=== PATIENT | male | born 1990 | race Caucasian/White ===

== ENCOUNTER 2023-12-26 18:10 | Emergency (ER) | payer OTHER, SELFPAY ==
[2023-12-26 18:13] VITALS: BP 160/90; PULSE 95; RESP 16; TEMP 37.1; O2SAT 97; BMI 30.1
--- NOTE | 2023-12-26 18:24 | ED_ITS ---
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 Also he has had a white patch in his renner he is concerned about it appears to be just simply well whitish renner patch and it does not appear to be in any fungal infection or other underlying skin issue thirdly he has had trouble with some right upper abdominal discomfort intermittently over the last few months. He has not lost weight. He has not had any diarrhea or inability to eat. Does not seem to initially be worse when he eats but occasionally when he stands for prolonged periods or sits a certain way it will bother him. He has had no fever chills or weight loss as mention. No bowel or bladder changes or urinary changes. Related Data Previous Rx's Medication Instructions Recorded cephalexin 500 mg capsule 500 mg PO TID #21 caps 12/26/23 Allergies Allergy/AdvReac Type Severity Reaction Status Date / Time No Known Drug Allergies Allergy Verified 12/26/23 18:16 Review of Systems Status of ROS: Reports: 6 or more systems reviewed and unremarkable except as noted in History and below PFSH [facility] Social History Smoking Status: Never smoker Do you use any of these nicotine containing products: None How often do you have a drink containing alcohol: never How often do you have six or more drinks on one occasion: Never AUDIT-C Alcohol total score: 0 Non-prescribed substance use: denies use service: No Exam Narrative: Exam Narrative: Objective his temperature is normal, is blood pressure is slightly elevated 160/90 O2 sat excellent at 97% Alert orient x3 HEENT is unremarkable no scleral icterus mouth clear neck is supple Pulses regular Abdomen is benign soft no palpable rebound or peritonitis no palpable masses he does describe it is in his epigastrium and right upper quadrant where the pain has occurred. No back pain Lower extremities unremarkable, neurologic nonfocal Const: Vital Signs, click to edit/add: Vital Signs - 24 hr 12/26/23 18:13 Temperature 98.7 F Pulse Rate [Pulse Oximeter] 95 Respiratory Rate 16 Blood Pressure [Ri ght Upper Arm] 160/90 H Pulse Oximetry 97 Oxygen Delivery Me thod Room Air Course Vital Signs Vital signs: Initial Vital Signs Temperature 98.7 F 12/26/23 18:13 Temperature Source Temporal Artery Scan 12/26/23 18:13 Pulse Rate 95 12/26/23 18:13 Respiratory Rate 16 12/26/23 18:13 Blood Pressure 160/90 H 12/26/23 18:13 Blood Pressure Mean 113 H 12/26/23 18:13 Blood Pressure Position Sitting 12/26/23 18:13 Pulse Oximetry 97 12/26/23 18:13 Oxygen Delivery Method Room Air 12/26/23 18:13 Vital Signs Temperature 98.7 F 12/26/23 18:13 Pulse Rate 95 12/26/23 18:13 Respiratory Rate 16 12/26/23 18:13 Blood Pressure 160/90 H 12/26/23 18:13 Pulse Oximetry 97 12/26/23 18:13 Oxygen Delivery Method Room Air 12/26/23 18:13 Temperature 98.7 F 12/26/23 18:13 Pulse Rate 95 12/26/23 18:13 Respiratory Rate 16 12/26/23 18:13 Blood Pressure 160/90 H 12/26/23 18:13 Pulse Oximetry 97 12/26/23 18:13 Oxygen Delivery Method Room Air 12/26/23 18:13 Medications Administered Medications: Discontinued Medications Generic Name Dose Route Start Last Admin Trade Name Freq PRN Reason Stop Dose Admin Cephalexin HCl 500 mg 12/26/23 18:22 12/26/23 18:30 Cephalexin 500 Mg Capsule PO 12/26/23 18:23 500 mg ONCE ONE Administration Medical Decision Making MDM Narrative Medical decision making narrative: In 33-year-old male with a evidence of mild tooth infection on examination he has some mild lower gum irritation and some tooth decay on the lower gumline tooth on the right there is some minimal redness around the base that could be mild infection he will be started on Keflex 500 q.i.d. x7 days. Secondly he has a whitish patches renner that I think is just simply a graying of his renner I do not think there is any underlying cellulitic change I do not see any other underlying fungal infection. Thirdly the patient has some intermittent right- sided abdominal pain epigastric pain certainly could be mild gastritis could be cholelithiasis or cholecystitis. I think at this time would be corcoran check some lab studies if these are reassuring will set him up to see primary care for reassessment and make sure this is improving. I think also a trial of some H2 tyesha would be appropriate for acid suppression see that would help him. Will review labs as they return. Addendum 7:39 p.m.: The patient's lab studies look relatively reassuring, specifically CRP is less than 0.5 his ER profile is unremarkable, his AST and ALT are minimally elevated, his amylase is normal. The patient will be given antibiotic Keflex for his mouth infection, I think he can follow up with primary care, will given the number for a clinic appointment at our [facility]. And he should follow up to make sure that his symptoms are getting better. Because the location of the discomfort is certainly could be a gastritis or ref lux type symptom and I would have him take Zantac daily for the next couple of weeks. And he can follow up with primary care in 5-7 days and see how he is improving and return to ED sooner problems or concerns or worsening. May need further imaging such as ultrasound of the right upper quadrant if he does not get better her symptoms were continue despite H2 tyesha. Lab Data Labs: Lab Results 12/26/23 Range/Units 18:37 Sodium 138 (135-149) mmol/L Potassium 4.0 (3.6-5.1) mmol/L Chloride 105 (96-114) mmol/L Carbon Dioxide 28 (20-32) mmol/L Anion Gap 5 L (7-15) mEq/L BUN 16 (5-24) mg/dL Creatinine 1.1 (0.5-1.5) mg/dL Estimated Creat Clear 97.70 Estimated GFR 90 ml/min Glucose 93 (60-115) mg/dL Calcium 9.3 (8.4-10.6) mg/dL Total Bilirubin 0.7 (0.1-1.5) mg/dL Direct Bilirubin 0.0 (0.0-0.5) mg/dL AST 36 H (12-35) U/L ALT 52 H (4-50) U/L Alkaline Phosphatase 69 (40-150) U/L C-Reactive Protein < 0.5 L (0.5-1.0) mg/dL Total Protein 7.4 (6.0-8.3) g/dL Albumin 4.9 (3.3-5.0) g/dL Amylase 79 (18-89) U/L Discharge Plan Discharge Clinical Impression: Infected tooth, Abdominal pain Patient Disposition: Home, Self-Care Condition: Stable Additional Instructions: Keflex x7 days, would recommend a trial of Zantac or [id number] acid medicine. Recheck with primary care in the next week to 10 days. Please make an appointment or give the patient the number for the primary care clinic. Activity Level: No Restrictions Discharge Diet: Regular Prescriptions: New cephalexin 500 mg capsule 500 mg PO TID Qty: 21 0RF Stand Alone Forms: Flux Info Instructions
[2023-12-26] MEDS: cephALEXin 500 MG CAPSULE PO (18:30)
[2023-12-26 19:09] LABS: Albumin* 4.9 g/dL (3.3-5.0)
[2023-12-26 19:10] LABS: Chloride* 105 mmol/L (96-114); Sodium* 138 mmol/L (135-149)
[2023-12-26 19:11] LABS: Amylase* 79 U/L (18-89)
[2023-12-26 19:12] LABS: Alanine Aminotransferase* 52 U/L (4-50); Alkaline Phosphatase* 69 U/L (40-150); Aspartate Amino Transferase* 36 U/L (12-35); Bilirubin Total* 0.7 mg/dL (0.1-1.5); Creatinine* 1.1 mg/dL (0.5-1.5); Estimated Glomerular Filt Rate 90 ml/min; Total Protein* 7.4 g/dL (6.0-8.3)
[2023-12-26 19:13] LABS: Anion Gap 5 mEq/L (7-15); Carbon Dioxide* 28 mmol/L (20-32)
[2023-12-26 19:14] LABS: Blood Urea Nitrogen* 16 mg/dL (5-24); Calcium* 9.3 mg/dL (8.4-10.6); Glucose* 93 mg/dL (60-115)
[2023-12-26 19:17] LABS: C Reactive Protein* < 0.5 mg/dL (0.5-1.0)
[2023-12-26 22:00] LABS: Basophils Absolute Auto 0.03 K/uL (0.00-0.30); Basophils Percent Auto 0.4 % (0.0-3.0); Eosinophils Absolute Auto 0.22 K/uL (0.00-0.50); Eosinophils Percent Auto 2.8 % (0.0-7.0); Hematocrit 46.5 % (37.0-53.0); Hemoglobin* 16.3 gm/dL (13.5-17.5); Immature Granulocytes Abs Auto 0.06 K/uL (0.00-0.30); Immature Granulocytes Pct Auto 0.8 %; Lymphocytes Absolute Auto 2.31 K/uL (0.90-2.90); Lymphocytes Percent Auto 29.4 % (20-44); Mean Corpuscular HGB Conc 35 gm/dL (32-36); Mean Corpuscular Hemoglobin 30 pg (26-34); Mean Corpuscular Volume 87 fL (80-100); Monocytes Percent Auto 7.2 % (0.0-11.0); Neutrophils Absolute Auto 4.68 K/uL (1.7-7.0); Neutrophils Percent Auto 59.4 % (42.0-72.0); Platelet Count* 263 K/uL (140-440); RDW Coefficient of Variation % 11.9 % (11.5-15.5); Red Blood Count 5.36 m/uL (4.30-5.90); White Blood Count* 7.87 K/uL (4.50-11.00)
[2023-12-26 22:02] LABS: Slide Review Reflex No
== END 2023-12-26 20:10 | disposition home or self-care (01) ==
LOC: ED 19:35
PROVIDERS: Emergency Provider Family Medicine
DX: K04.7 Periapical abscess without sinus (principal); R10.9 Unspecified abdominal pain
CPT/HCPCS: 36415; 80048; 80076; 82150; 85025; 86140; 99283; 99284; A9270